=== PATIENT | male | born 1990 | race Caucasian/White ===

== ENCOUNTER 2016-12-02 15:34 | Emergency (ER) | payer OTHER ==
[2016-12-02 15:39] VITALS: BP 125/77
[2016-12-02] MEDS ORDERED: IBUPROFEN 400 MG TABLET PO STA (15:53)
--- NOTE | 2016-12-02 16:30 | XRAY Preliminary Report ---
Exam: XR Knee 4 View LT IMPRESSION: No acute findings are seen. [facility] SITE ID: [id number]
--- NOTE | 2016-12-02 16:32 | XRAY Report ---
EXAM: LEFT KNEE RADIOGRAPHY EXAM DATE: 12/02/2016 04:13 PM. CLINICAL HISTORY: Knee pain and effusion. Left knee pain since . Anterior pain. No known inju ry. COMPARISON: None. TECHNIQUE: 4 views. FINDINGS: Bones: No evidence for acute fracture. There appears to be a small bone island at the fibular head. Joints: Normal. No effusion. No subluxations. Soft Tissues: Normal. No soft tissue swelling. IMPRESSION: No acute findings are seen. [facility] Referring Provider Line: [phone] SITE ID: [id number]
[2016-12-02] MEDS ORDERED: ACETAMINOPHEN 325 MG TABLET PO STA (16:45)
[2016-12-02] MEDS ORDERED: ACETAMINOPHEN 325 MG TABLET PO ONE (16:47)
--- NOTE | 2016-12-02 16:48 | ED Physician Documentation ---
History of Present Illness - Stated complaint Stated Complaint: L KNEE PX - Chief complaint Chief Complaint: Ext Problem - Additonal information Additional information: hx from pt 26 male [place] hx patellar cartilage injury no specific injury this time but knee is painful and swollen under the patella no redness or fever Review of Systems Musculoskeletal: reports: Pain with weight bearing PD PAST MEDICAL HISTORY - Past Medical History Past Medical History: Yes Respiratory: Asthma - Past Surgical History Past Surgical History: Yes - Present Medications Home Medications: Ambulatory Orders Medication Instructions Recorded Confirmed No Known Home Medications [No 12/02/16 12/02/16 Known Home Medications] - Allergies Allergies/Adverse Reactions: Allergies Allergy/AdvReac Type Severity Reaction Status Date / Time No Known Drug Allergies Allergy Verified 12/02/16 15:39 - Social History Does the pt smoke?: No Smoking Status: Never smoker Does the pt drink ETOH?: No Does the pt have substance abuse?: No - Immunizations Immunizations are current?: Yes PD ED PE NORMAL - Vitals Vital signs reviewed: Yes - Extremities Extremities: Other (+ effusion, + patellar grind, no ACL MCL LCL laxity, no pain pop with meniscal testing) - Neuro Neuro: No motor deficit, No sensory deficit Results - Vitals Vitals: Vital Signs - 24 hr 12/02/16 15:37 Temperature 36.7 C Heart Rate 65 Respiratory 18 Rate Blood Pressure 125/77 O2 Saturation 99 Oxygen O2 Source Room air - Rads (name of study) knee Radiology: See rad report (no acute) Departure - Departure Disposition: 01 Home, Self Care 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 Please follow up with orthopedics at [facility] Recommend no working out, climbing ladders, bending and squatting until better Forms: Activity restrictions
== END 2016-12-02 17:23 | disposition home or self-care (01) ==
LOC: ED 15:34
DX: M22.42 Chondromalacia patellae, left knee (principal); M25.462 Effusion, left knee; J45.909 Unspecified asthma, uncomplicated
CPT/HCPCS: 73564; 99282; 99283; A9270

== ENCOUNTER 2018-09-04 12:09 | Outpatient (CLI) | payer OTHER | END 2018-09-04 12:10 | disposition critical access hospital (66) | LOC: EMS 12:09 | PROVIDERS: ATTEND Surgery | DX: R07.9 Chest pain, unspecified (principal); R20.2 Paresthesia of skin | CPT/HCPCS: A0425; A0427 ==

== ENCOUNTER 2018-09-04 12:30 | Emergency (ER) | payer OTHER ==
--- NOTE | 2018-09-04 12:44 | ED Physician Documentation ---
PD HPI CHEST PAIN - Stated complaint Stated Complaint: CHEST PAIN - Chief complaint Chief Complaint: Cardiac - History obtained from History obtained from: Patient, EMS - History of Present Illness Timing - onset: Yesterday Timing - onset during: Rest Timing - duration: Seconds (3-5) Timing - details: Abrupt onset, Intermittant Pain level max: 5 Pain level now: 0 Quality: Other (cramping pain) Location: Left chest Radiation: No: Jaw, Neck, Back, Abdominal, Left upper extremity, Right upper extremity Improved by: Nothing Worsened by: Other (nothing) Associated symptoms: No: Shortness of air, Diaphoresis, Nausea, Vomiting, Feeling faint / dizzy, General Weakness, Palpitations, Cough Similar symptoms before: Has not had sx before Recently seen: Not recently seen Review of Systems Constitutional: denies: Fever, Chills Nose: denies: Rhinorrhea / runny nose, Congestion Throat: denies: Sore throat Cardiac: denies: Palpitations, Calf pain Respiratory: denies: Cough, Wheezing GI: denies: Abdominal Pain, Nausea, Vomiting Skin: denies: Rash Musculoskeletal: denies: Neck pain, Back pain Neurologic: denies: Focal weakness, Numbness PD PAST MEDICAL HISTORY - Past Medical History Respiratory: Asthma - Past Surgical History Past Surgical History: Yes - Present Medications Home Medications: Ambulatory Orders Medication Instructions Recorded Confirmed Cyclobenzaprine [Flexeril] 10 mg PO TID PRN #10 tablet 09/04/18 Ibuprofen [Motrin] 800 mg PO Q8H PRN #20 tablet 09/04/18 - Allergies Allergies/Adverse Reactions: Allergies Allergy/AdvReac Type Severity Reaction Status Date / Time No Known Drug Allergies Allergy Verified 09/04/18 12:40 - Social History Does the pt smoke?: No Smoking Status: Never smoker Does the pt drink ETOH?: No Does the pt have substance abuse?: No - Immunizations Immunizations are current?: Yes PD ED PE NORMAL - Vitals Vital signs reviewed: Yes - General General: Alert and oriented X 3, No acute distress, Well developed/nourished - HEENT HEENT: PERRL, Moist mucous membranes - Neck Neck: Supple, no meningeal sign - Cardiac Cardiac: RRR, No murmur, No gallop, No rub, Strong equal pulses - Respiratory Respiratory: No respiratory distress, Clear bilaterally - Abdomen Abdomen: Soft, Non tender, Non distended - Back Back: No spinal TTP - Derm Derm: Warm and dry - Extremities Extremities: No edema, No calf tenderness / cord - Neuro Neuro: Alert and oriented X 3 - Psych Psych: Normal mood, Normal affect Results - Vitals Vitals: Vital Signs - 24 hr 09/04/18 09/04/18 12:35 13:44 Temperature 36.4 C L 36.6 C Heart Rate 71 88 Respiratory 14 24 Rate Blood Pressure 127/88 H 127/89 H O2 Saturation 99 100 Oxygen O2 Source Room air - EKG (time done) 1232 Rate: Rate (enter#) (71) Rhythm: NSR [place]: Normal Intervals: Normal SD QRS: Normal Ischemia: Normal ST segments - Labs Labs: Laboratory Tests 09/04/18 09/04/18 09/04/18 12:50 12:50 12:50 WBC 6.0 RBC 4.69 L Hgb 13.6 L Hct 40.4 L MCV 86.1 MCH 29.1 MCHC 33.8 RDW 13.4 Plt Count 240 MPV 9.6 Neut # (Auto) 4.4 Lymph # (Auto) 1.1 L [place] # (Auto) 0.4 Eos # (Auto) 0.1 Baso # (Auto) 0.0 Absolute Nucleated RBC 0.01 Nucleated RBC % 0.1 Sodium 137 Potassium 4.0 Chloride 100 L Carbon Dioxide 27 Anion Gap 10.0 BUN 13 Creatinine 0.7 Estimated GFR (MDRD) 133 Glucose 97 Calcium 9.5 Total Bilirubin 1.1 H AST 27 ALT 26 Alkaline Phosphatase 62 Troponin I < 0.04 Total Protein 8.2 Albumin 5.2 Globulin 3.0 Albumin/Globulin Ratio 1.7 Lipase 28 - Rads (name of study) cxr Radiology: Prelim report reviewed, EMP read contemporaneously, See rad report (normal) PD MEDICAL DECISION MAKING - ED course Complexity details: reviewed results, re-evaluated patient, considered differential (No ST elevation NM, no aortic dissection, no PE, no tension pneumothorax, no aortic aneurysm), d/w patient ED course: 28-year-old male presents the emergency department with what sounds like muscular spasm to the left anterior chest wall. Lasts for a few seconds at a time. No changes on telemetry monitoring while this is occurring. No evidence of acute coronary syndrome. No aortic dissection. No pulmonary embolism. We will continue supportive care and follow-up with his doctor. He was given aspirin prior to arrival. Patient counseled regarding signs and symptoms for which I believe and urgent re-evaluation would be necessary. Patient with good understanding of and agreement to plan and is comfortable going home at this time This document was made in part using voice recognition software. While efforts are made to proofread this document, sound alike and grammatical errors may occur. Departure - Departure Disposition: 01 Home, Self Care Clinical Impression: Chest pain Qualifiers: Chest pain type: unspecified Qualified Code(s): R07.9 - Chest pain, unspecified Condition: Good Instructions: ED Chest Pain Atypical Unkn Cause Follow-Up: VIOLET AHUJA [Primary Care Provider] - Within 1 week Prescriptions: Cyclobenzaprine [Flexeril] 10 mg PO TID PRN #10 tablet PRN Reason: Spasms Ibuprofen [Motrin] 800 mg PO Q8H PRN #20 tablet PRN Reason: PAIN &/OR FEVER Comments: Your heart tests are normal today. Return if you worsen. This should improve over the next few days. Discharge Date/Time: 09/04/18 14:09
[2018-09-04 13:08] LABS: BASOPHILS % (AUTO) 0.8 %; EOSINOPHILS # (AUTO) 0.1 10^3/uL (0.0-0.7); EOSINOPHILS % (AUTO) 1.4 %; HGB - HEMOGLOBIN 13.6 g/dL (14.0-18.0); LYMPHOCYTES # (AUTO) 1.1 10^3/uL (1.5-3.5); LYMPHOCYTES % (AUTO) 17.8 %; MEAN CORPUSCULAR HEMOGLOBIN 29.1 pg (27.0-31.0); MEAN CORPUSCULAR HGB CONC 33.8 g/dL (32.0-36.0); MEAN CORPUSCULAR VOLUME 86.1 fL (80.0-94.0); MEAN PLATELET VOLUME 9.6 fL (7.4-11.4); MONOCYTES # (AUTO) 0.4 10^3/uL (0.0-1.0); MONOCYTES % (AUTO) 6.5 %; NEUTROPHILS # (AUTO) 4.4 10^3/uL (1.5-6.6); NEUTROPHILS % (AUTO) 73.5 %; PLT - PLATELET COUNT 240 10^3/uL (130-450); RED BLOOD COUNT 4.69 10^6/uL (4.70-6.10); RED CELL DISTRIBUTION WIDTH 13.4 % (12.0-15.0)
[2018-09-04 13:12] LABS: ALBUMIN 5.2 g/dL (3.2-5.5); ALBUMIN/GLOBULIN RATIO 1.7 (1.0-2.2); BILIRUBIN,TOTAL 1.1 mg/dL (0.2-1.0); CALCIUM 9.5 mg/dL (8.5-10.3); CREATININE 0.7 mg/dL (0.6-1.2); TOTAL PROTEIN 8.2 g/dL (6.7-8.2)
[2018-09-04] MEDS ORDERED: CYCLOBENZAPRINE 10 MG TABLET PO STA (13:33)
--- NOTE | 2018-09-04 13:36 | XRAY Report ---
Reason: Chest Pain Procedure Date: 09/04/2018 Accession Number: [id number] / [id number] Procedure: XR - Chest 1 View X-Ray CPT Code: 20453 FULL RESULT: EXAM: CHEST RADIOGRAPHY EXAM DATE: 09/04/2018 12:50 PM. CLINICAL HISTORY: Chest Pain. COMPARISON: None. TECHNIQUE: 1 view. FINDINGS: Lungs/Pleura: No focal opacities evident. No pleural effusion. No pneumothorax. Mediastinum: Within exam limitations, the cardiomediastinal contour is normal. Other: None. IMPRESSION: No acute intrathoracic plain film abnormality. [facility]
[2018-09-04 13:45] VITALS: BP 127/89
== END 2018-09-04 14:09 | disposition home or self-care (01) ==
LOC: ED 12:30
DX: R07.9 Chest pain, unspecified (principal)
CPT/HCPCS: 36415; 71045; 80053; 83690; 84484; 85025; 93005; 99283; 99284; A9270